=== PATIENT | female | born 1965 ===

== ENCOUNTER 2017-09-06 22:20 | Emergency (ER) | payer OTHER ==
[2017-09-06 22:20] VITALS: BMI 42.0
[2017-09-06 23:06] VITALS: TEMP 98.4; O2SAT 97
[2017-09-07] MEDS ORDERED: Albuterol-Ipratrop 3 mg / 0.5 (3 ml) UD INH STA ×3 (00:37→00:42)
[2017-09-07] MEDS ORDERED: Albuterol-Ipratrop 3 mg / 0.5 (3 ml) UD ONE (00:47)
--- NOTE | 2017-09-07 01:14 | ED PDOC ---
HPI: CCC, URI, Sore Throat Time Seen by Provider: 09/07/17 00:09 Chief Complaint (Nursing): ENT Problem Chief Complaint (Provider): Cough, Congestion History Per: Patient History/Exam Limitations: no limitations Onset/Duration Of Symptoms: Days (x5) Current Symptoms Are (Timing): Still Present Additional Complaint(s): 52 y/o female with a pmhx of psoriatic arthritis, who presents to the ED for evaluation of cough and congestion x5 days. Patient reports losing her voice. She also reports her son was recently sick with the same symptoms. Past Medical History Reviewed: Historical Data, Nursing Documentation, Vital Signs Vital Signs: Last Vital Signs Temp 98.4 F 09/06/17 23:05 Pulse 96 H 09/06/17 23:05 Resp 16 09/06/17 23:05 BP 128/81 09/06/17 23:05 Pulse Ox 97 09/07/17 02:04 - Medical History PMH: Arthritis (psoriatic) Denies: Asthma - Surgical History Surgical History: Cholecystectomy, (x 4) - Family History Family History: States: Unknown Family Hx - Social History Current smoker - smoking cessation education provided: No Alcohol: None Drugs: Denies - Home Medications Home Medications: Ambulatory Orders Medication Instructions Recorded Clobetasol 0.05% [Temovate 0.05%] 30 applic TOP BID #1 tube 12/28/13 Selenium Sulfide [A-D Blue Shampoo 330 ml TP DAILY #0 sha 12/28/13 210 ml] Amoxicillin/Clavulanate Pota 1 tab PO BID #14 tab 03/28/14 [Augmentin 875 mg-125 mg] Azithromycin 1 tab PO DAILY #6 tab 04/05/14 Oseltamivir Phosphate [Tamiflu] 75 mg PO BID #10 cap 04/05/14 Promethazine HCl/Codeine 10 ml PO Q6H PRN #120 ml 04/05/14 [Promethazine HCl-Codeine Phosphate 10 mg/5 ml] Albuterol HFA [Ventolin HFA 90 2 puff IH [id number] PRN #30 puff 06/13/14 mcg/actuation (8 g)] Levofloxacin [Levaquin] 500 mg PO DAILY 7 Days tab 06/13/14 Methylprednisolone [Medrol Dose 4 mg PO DAILY #21 mg 06/13/14 Pack (21 tabs)] Albuterol HFA [Ventolin HFA 90 1 - 2 puff IH Q6 PRN #1 inhaler 09/07/17 mcg/actuation (8 g)] Azithromycin [Zithromax] 250 mg PO QAM #1 pkg 09/07/17 predniSONE [predniSONE Tab] 60 mg PO QAM #12 tab 09/07/17 - Allergies Allergies/Adverse Reactions: Allergies Allergy/AdvReac Type Severity Reaction Status Date / Time No Known Allergies Allergy Verified 09/06/17 23:05 Review of Systems ROS Statement: Except As Marked, All Systems Reviewed And Found Negative ENT: Positive for: Nose Congestion Respiratory: Positive for: Cough Physical Exam - Reviewed Nursing Documentation Reviewed: Yes Vital Signs Reviewed: Yes - Physical Exam Appears: Positive for: Non-toxic, No Acute Distress, Uncomfortable Head Exam: Positive for: ATRAUMATIC, NORMAL INSPECTION, NORMOCEPHALIC Skin: Positive for: Normal Color, Warm, Dry. Negative for: Rash Eye Exam: Positive for: EOMI, Normal appearance, PERRL ENT: Positive for: Normal ENT Inspection Neck: Positive for: Normal, Painless ROM, Supple Cardiovascular/Chest: Positive for: Regular Rate, Rhythm. Negative for: Murmur Respiratory: Positive for: Decreased Breath Sounds (bilaterally) Gastrointestinal/Abdominal: Positive for: Normal Exam, Soft. Negative for: Tenderness Back: Positive for: Normal Inspection. Negative for: L CVA Tenderness, R CVA Tenderness, Vertebral Tenderness Extremity: Positive for: Normal ROM. Negative for: Pedal Edema, Deformity Neurologic/Psych: Positive for: Alert, Oriented. Negative for: Motor/Sensory Deficits - Laboratory Results Result Diagrams: 09/07/17 01:19 09/07/17 01:19 - ECG O2 Sat by Pulse Oximetry: 97 Medical Decision Making Medical Decision Makin:36 Initial Impression: 52 y/o with URI symptoms Plan: --EKG --CMP --Urine --CBC --CXR --Duoneb 3ml INH x3 --Solu-Medrol 125mg IVP --Blood culture --Heplock insertion --Peak flow treatment --Reevaluation 01:50 CXR shows no active disease. Labs were reviewed and no clinically significant abnormalities were found. Patient stable for discharge. Scribe Attestation: Documented by Shon Richter, acting as a scribe for Jeison Nueñz MD. Provider Scribe Attestation: All medical record entries made by the Scribe were at my direction and personally dictated by me. I have reviewed the chart and agree that the record accurately reflects my personal performance of the history, physical exam, medical decision making, and the department course for this patient. I have also personally directed, reviewed, and agree with the discharge instructions and disposition. Disposition - Clinical Impression Clinical Impression: Bronchitis - Patient ED Disposition Is Patient to be Admitted: No Counseled Patient/Family Regarding: Studies Performed, Diagnosis, Need For Followup, Rx Given - Disposition Disposition: Routine/Home Disposition Time: 01:50 Condition: STABLE Prescriptions: Albuterol HFA [Ventolin HFA 90 mcg/actuation (8 g)] 1 - 2 puff IH Q6 PRN #1 inhaler PRN Reason: Shortness Of Breath Azithromycin [Zithromax] 250 mg PO QAM #1 pkg predniSONE [predniSONE Tab] 60 mg PO QAM #12 tab Instructions: Acute Bronchitis Forms: [facility] (Croatian)
[2017-09-07 01:25] LABS: BASO # 0.1 K/uL (0.0-0.2); BASO % 1.5 % (0.0-2.0); EOS # 0.3 K/uL (0.0-0.7); EOS % 4.1 % (0.0-4.0); HEMOGLOBIN 14.3 g/dL (12.0-16.0); LYMPH # 2.6 K/uL (1.0-4.3); LYMPH % 36.5 % (20.0-40.0); MEAN CELL VOLUME 90.3 fl (81.0-99.0); MEAN CORPUSCULAR HGB CONC 34.3 g/dL (33.0-37.0); MEAN PLATELET VOLUME 7.8 fl (7.2-11.7); MONO # 0.9 K/uL (0.0-0.8); MONO % 12.6 % (0.0-10.0); NEUT # 3.3 K/uL (1.8-7.0); NEUT % 45.3 % (50.0-75.0); RBC 4.61 Mil/uL (3.80-5.20); RED CELL DISTRIBUTION WIDTH 14.8 % (11.5-14.5); WHITE BLOOD COUNT 7.2 K/uL (4.8-10.8)
[2017-09-07 01:32] LABS: ALB/GLOB RATIO 1.1 (1.0-2.1); ALBUMIN 4.1 g/dL (3.5-5.0); ALT/SGPT 61 U/L (9-52); AST/SGOT 44 U/L (14-36); BLOOD UREA NITROGEN 11 mg/dl (7-17); CALCIUM 9.3 mg/dL (8.4-10.2); GFR AFRICAN-AMERICAN > 60; GFR NON-AFRICAN AMERICAN > 60
[2017-09-07 02:52] VITALS: BP 109/62; PULSE 89; RESP 17
--- NOTE | 2017-09-07 09:00 | RAD ---
HISTORY: cough COMPARISON: Chest radiograph dated 02/08/2017. FINDINGS: LUNGS: No active pulmonary disease. PLEURA: No significant pleural effusion identified, no pneumothorax apparent. CARDIOVASCULAR: Cardiomediastinal silhouette stably prominent. OSSEOUS STRUCTURES: Unchanged. VISUALIZED UPPER ABDOMEN: Normal. OTHER FINDINGS: None. IMPRESSION: No active disease.
--- NOTE | 2017-09-07 10:23 | CARD ---
APPROVED REPORT EKG Measurement Heart [id number] <Conclusion> Normal sinus rhythm Normal ECG
== END 2017-09-07 03:00 | disposition home or self-care (01) ==
LOC: H.ER 22:20
DX: J40 Bronchitis, not specified as acute or chronic (principal)
CPT/HCPCS: 71045; 80053; 85025; 87040; 93005; 96374; 99284; J2930

== ENCOUNTER 2018-07-28 17:48 | Emergency (ER) | payer OTHER ==
[2018-07-28 17:49] VITALS: BMI 42.0
[2018-07-28 18:03] VITALS: BP 127/80; PULSE 83; RESP 16; TEMP 98.6; O2SAT 97
--- NOTE | 2018-07-28 18:42 | ED PDOC ---
Lower Extremity Pain/Injury Time Seen by Provider: 07/28/18 18:17 Chief Complaint (Nursing): Lower Extremity Problem/Injury Chief Complaint (Provider): Right Knee Pain History Per: Patient, Family () History/Exam Limitations: no limitations Onset/Duration Of Symptoms: Days (2-3 weeks) Current Symptoms Are (Timing): Still Present Additional Complaint(s): 53 year old female with pmhx of psorasis and rheumatoid arthritis presents to the ED for evaluation of chronic right knee pain that has been worse for the 2-3 weeks, specifically with walking. Patient's provided a list of several medications that patient is on for her condition, but reports that she has had no relief with the last dose of her Etodotac around noon. Usually, as per , patient has flare ups after walking for long periods which will resolve on their own, but she has not done any extensive, out of the normal walks or heavy lifting, and she further denies any injury, trauma, falls, numbness, and tingling. PMD: [facility] Past Medical History Reviewed: Historical Data, Nursing Documentation, Vital Signs Vital Signs: Last Vital Signs Temp 98.6 F 07/28/18 18:00 Pulse 83 07/28/18 18:00 Resp 16 07/28/18 18:00 BP 127/80 07/28/18 18:00 Pulse Ox 97 07/28/18 18:00 - Medical History PMH: Arthritis (psoriatic and rheumatoid), Kidney Stones Denies: Asthma - Surgical History Surgical History: Cholecystectomy, (x 4) - Family History Family History: States: Unknown Family Hx - Living Arrangements Living Arrangements: With Family - Social History Current smoker - smoking cessation education provided: No Alcohol: None Drugs: Denies - Home Medications Home Medications: Ambulatory Orders Medication Instructions Recorded Clobetasol 0.05% [Temovate 0.05%] 30 applic TOP BID #1 tube 12/28/13 Selenium Sulfide [A-D Blue Shampoo 330 ml TP DAILY #0 sha 12/28/13 210 ml] Amoxicillin/Clavulanate Pota 1 tab PO BID #14 tab 03/28/14 [Augmentin 875 mg-125 mg] Azithromycin 1 tab PO DAILY #6 tab 04/05/14 Oseltamivir Phosphate [Tamiflu] 75 mg PO BID #10 cap 04/05/14 Promethazine HCl/Codeine 10 ml PO Q6H PRN #120 ml 04/05/14 [Promethazine HCl-Codeine Phosphate 10 mg/5 ml] Albuterol HFA [Ventolin HFA 90 2 puff IH [id number] PRN #30 puff 06/13/14 mcg/actuation (8 g)] Levofloxacin [Levaquin] 500 mg PO DAILY 7 Days tab 06/13/14 Methylprednisolone [Medrol Dose 4 mg PO DAILY #21 mg 06/13/14 Pack (21 tabs)] Albuterol HFA [Ventolin HFA 90 1 - 2 puff IH Q6 PRN #1 inhaler 09/07/17 mcg/actuation (8 g)] Azithromycin [Zithromax] 250 mg PO QAM #1 pkg 09/07/17 predniSONE [predniSONE Tab] 60 mg PO QAM #12 tab 09/07/17 Naproxen 500 mg PO BID PRN #20 tab 07/28/18 - Allergies Allergies/Adverse Reactions: Allergies Allergy/AdvReac Type Severity Reaction Status Date / Time No Known Allergies Allergy Verified 07/28/18 18:00 Review of Systems ROS Statement: Except As Marked, All Systems Reviewed And Found Negative Musculoskeletal: Positive for: Other (right knee pain) Neurological: Negative for: Numbness (or tingling) Physical Exam - Reviewed Nursing Documentation Reviewed: Yes Vital Signs Reviewed: Yes - Physical Exam Comments: GENERAL APPEARANCE: Patient is awake, alert, oriented x 3, in no acute distress. Patient is obese. SKIN: Warm, dry; (-) cyanosis. RIGHT LOWER EXTREMITY: capillary refill less than two seconds, sensation intact, pulses 2+. Knee: full ROM, (+) diffuse tenderness, (-) ligament laxity, (-) Miller's sign, (-) erythema, (-) swelling. No calf tenderness. Achilles tendon intact and nontender. Remainder of RLE: (-) injury _. CARDIOVASCULAR: (+) distal pulse. NEUROLOGIC: (+) distal sensation. - ECG O2 Sat by Pulse Oximetry: 97 (RA) Pulse Ox Interpretation: Normal Medical Decision Making Medical Decision Making: Initial Impression: chronic right knee pain, arthritis exacerbation Time: 1822 Initial Plan: --Right knee XR --Toradol 30mg IM --Reevaluate 1929 XR read as moderate osteoarthritis and ossific bodies in the popiteal region unchanged from 09/08/2013 with no acute fractures or dislocation by ZEYAD Proctor. 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 Discussed results, diagnosis, treatment, return precautions and f/u with pt who is understanding, in agreement and stable for dc Scribe Attestation: Documented by Armida Adrian acting as a scribe for Dayday Hunter PA-C. Provider Scribe Attestation: All medical record entries made by the Scribe were at my direction and personally dictated by me. I have reviewed the chart and agree that the record accurately reflects my personal performance of the history, physical exam, medical decision making, and the department course for this patient. I have also personally directed, reviewed, and agree with the discharge instructions and disposition. Disposition - Clinical Impression Clinical Impression: Osteoarthritis of knee - Patient ED Disposition Is Patient to be Admitted: No Counseled Patient/Family Regarding: Studies Performed, Diagnosis, Need For Followup, Rx Given - Disposition Referrals: at [facility] [Outside] Valentin Tyson III, MD [Staff Provider] - Disposition: Routine/Home Disposition Time: 19:33 Condition: IMPROVED Additional Instructions: Thank you for letting us take care of you today. You were treated for knee pain and arthritis. Rest, ice and elevate your leg. Take medication as prescribed. If you take Naproxen, do not mango Etodolac. Follow up with your doctor or orthopedist as listed. The emergency medical care you received today was directed at your acute symptoms. If you were prescribed any medication, please fill it and take as directed. It may take several days for your symptoms to resolve. Return to the Emergency Department if your symptoms worsen, do not improve, or if you have any other problems. Please contact your doctor in 2 days for re-evaluation and follow up / or call one of the physicians/clinics you have been referred to that are listed on the Patient Visit Information form that is included in your discharge packet. Bring any paperwork you were given at discharge with you along with any medications you are taking to your follow up visit. Our treatment cannot replace ongoing medical care by a primary care provider (PCP) outside of the emergency department. Prescriptions: Naproxen 500 mg PO BID PRN #20 tab PRN Reason: Pain, Moderate (4-7) Instructions: Osteoarthritis (DC) Forms: [facility] (Icelandic) Print Language: GRENADIAN - POA Present On Arrival: None
--- NOTE | 2018-07-29 09:18 | RAD ---
Date of service: 07/28/2018 PROCEDURE: Right Knee Radiographs. HISTORY: diffuse pain COMPARISON: None. TECHNIQUE: 2 views obtained. FINDINGS: BONES: No acute fracture or destructive bony lesion identified. JOINTS: Joint space narrowing seen in all 3 joint compartments with cortical sclerosis and accompanying limited osteophyte development, particularly the patellofemoral articulation. No subluxation or dislocation. JOINT EFFUSION: None. OTHER FINDINGS: Within the soft tissues posterior to the knee are multiple soft tissue calcifications slightly increased in size compared to 09/18/2013 right knee radiographs. IMPRESSION: Moderate osteoarthritis, tricompartmental. No acute fracture, subluxation or dislocation right knee. Heterotopic soft tissue calcifications are seen in what appears to be extracapsular soft tissues posterior to the knee as discussed above, slightly increased in size in the interval compared to 09/18/2013 radiographs. If symptoms persist or worsen follow-up MRI can be considered for added characterization of right knee.
== END 2018-07-28 19:54 | disposition home or self-care (01) ==
LOC: H.ER 17:48
DX: M17.11 Unilateral primary osteoarthritis, right knee (principal)
CPT/HCPCS: 73562; 96372; 99284; J1885